=== PATIENT | male | born 2000 | race Two or more races ===

== ENCOUNTER 2024-06-08 09:22 | Emergency (ER) | payer MEDICAID, OTHER ==
[~2024-06-08] VITALS: Ht 177.8 cm; Wt 106.9 kg
[2024-06-08 09:53] VITALS: BP 129/60; PULSE 92; RESP 16; TEMP 98.6; O2SAT 97
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
[2024-06-08] MEDS: FAMOTIDINE 20 MG TAB PO ONE (12:00)
[2024-06-08] MEDS: DexAMETHasone SOD PHOS 10MG/1ML VIAL INJ IM ONE (12:00)
[2024-06-08] MEDS: diphenhdrAMINE HCL 25 MG CAP PO ONE (12:00)
[2024-06-08] MEDS ORDERED: CETI10TA2 PO (12:16)
[2024-06-08] MEDS ORDERED: FAMO20TA10 PO (12:16)
[2024-06-08] MEDS ORDERED: DIPH25TA54 PO (12:16)
== END 2024-06-08 12:17 | disposition home or self-care (01) ==
LOC: ER 09:22
DX: L50.9 Urticaria, unspecified (principal); E66.9 Obesity, unspecified; F15.90 Other stimulant use, unspecified, uncomplicated; Z68.33 Body mass index [BMI] 33.0-33.9, adult; Z98.890 Other specified postprocedural states; Z79.52 Long term (current) use of systemic steroids
CPT/HCPCS: 96372; 99283; J1100